=== PATIENT | female | born 1960 | race Caucasian/White ===

== ENCOUNTER 2018-02-03 12:07 | Emergency (ER) | payer OTHER ==
[~2018-02-03] VITALS: Ht 162.6 cm; Wt 77.5 kg
[2018-02-03 13:30] LABS: BASOPHIL (%) 0.7 % (0-1); BASOPHIL COUNT 0.1 K/uL (0-0.1); EOSINOPHIL (%) 6.4 % (0-5); EOSINOPHIL COUNT 0.6 K/uL (0-0.3); IMMATURE GRANULOCYTE (%) 0.3 % (0.0-0.7); LYMPHOCYTE (%) 20.4 % (15-42); MCHC 34.2 G/DL (30.0-36.0); MCV 87.8 FL (83-99); MONOCYTE (%) 7.4 % (3-12); MONOCYTE COUNT 0.7 K/uL (0-0.8); NEUTROPHIL (%) 64.8 % (45-76); NEUTROPHIL COUNT 6.2 K/uL (1.8-6.4); PLATELET COUNT 337 K/uL (156-360); RBC DIS.WIDTH-SD 38.8 % (39-53); RED BLOOD COUNT 4.33 M/uL (3.80-5.20); WHITE BLOOD COUNT 9.6 K/uL (4.1-10.2)
[2018-02-03 13:39] LABS: CHLORIDE 106 mEq/L (99-109); POTASSIUM 3.3 mEq/L (3.7-5.4); SODIUM 143 mEq/L (136-147)
[2018-02-03 13:40] LABS: GLUCOSE 138 mg/dL (70-99)
[2018-02-03 13:44] LABS: CREATININE 0.8 mg/dL (0.6-1.3); GFR ESTIMATE (CALCULATED) > 59 mL/min/
[2018-02-03 13:45] LABS: UREA NITROGEN (BUN) 17 mg/dL (9-23)
[2018-02-03 16:32] LABS: QUANTITATIVE HCG 5.8 MIU/ML
[2018-02-03] MEDS ORDERED: PERCOCET 5/31 TABLET PO (17:35)
[2018-02-03] MEDS ORDERED: ZOFRAN ODT4 MG PO (17:35)
[2018-02-03 18:11] VITALS: BP 152/99
== END 2018-02-03 18:12 | disposition home or self-care (01) ==
LOC: EME 12:07
DX: S21.002A Unspecified open wound of left breast, initial encounter (principal); C50.912 Malignant neoplasm of unspecified site of left female breast; C78.02 Secondary malignant neoplasm of left lung; C78.01 Secondary malignant neoplasm of right lung; C79.51 Secondary malignant neoplasm of bone; I10 Essential (primary) hypertension; F17.200 Nicotine dependence, unspecified, uncomplicated
CPT/HCPCS: 71046; 71260; 80048; 84702; 85025; 85025 91; 87070; 87075; 87077; 87147; 87186; 87205; 99281; 99284; J7030

== ENCOUNTER 2018-02-25 06:51 | Day surgery (SDC) | payer OTHER ==
[~2018-02-25] VITALS: Ht 162.6 cm; Wt 77.0 kg
[~2018-02-25 06:51] MED LIST: ASPIR 8181 M1 PO; LEVAQUIN500 MG PO; LOSARTAN-HCTZ1 EAC1 PO; NORVASC5 MG PO; PERCOCET 5/31 TABLET PO; WOMEN'S DAILY1 EAC4 PO; XANAX0.25 MG PO; ZOFRAN ODT4 MG PO
== END 2018-02-25 09:15 | disposition home or self-care (01) ==
LOC: CATH 06:51
DX: I87.8 Other specified disorders of veins (principal); C50.912 Malignant neoplasm of unspecified site of left female breast; I10 Essential (primary) hypertension; Z87.891 Personal history of nicotine dependence; Z79.82 Long term (current) use of aspirin; Z82.49 Family history of ischemic heart disease and other diseases of the circulatory system; Z83.3 Family history of diabetes mellitus; Z90.49 Acquired absence of other specified parts of digestive tract
CPT/HCPCS: C1751; C1894; J0690; J1644; J2250; J3010; S0020